=== PATIENT | female | born 1970 | race Caucasian/White ===

== ENCOUNTER 2024-03-04 09:41 | Emergency (ER) | payer OTHER, SELFPAY ==
[2024-03-04 09:58] VITALS: BP 155/96; PULSE 97; RESP 18; TEMP 36.7; O2SAT 99; BMI 30.9
--- NOTE | 2024-03-04 10:14 | EXP.UTC ---
Discharge Plan Disposition Patient Disposition: Home, Self-Care Condition: Good Prescriptions Prescriptions: New cephalexin 500 mg capsule 500 mg PO QID 7 Days Qty: 28 0RF Referrals Follow up/Referrals: Lacho Oleary APRN [Primary Care Provider] - See instructions Activity Restrictions/Add. Instructions Additional Instructions/Restrictions: Take medication as prescribed When home prop up legs to help with swelling Make appointment and keep it with your Family Doctor if symptoms persist or do no improve Return if needed Straight to ER if any life threatening symptoms Clinical Impressions Clinical Impression: Cellulitis Qualifiers: Site of cellulitis: unspecified site Qualified Code(s): L03.90 - Cellulitis, unspecified Instructions Patient Instructions: Cellulitis, DI for Peripheral Edema -- Bilateral, Cephalexin Discharge ED Provider: Jennifer Hernandez [facility] General Stated complaint: legs swollen, no accident Mode of Arrival: Ambulatory Source of Information: Patient Limitations: No Limitations Time Seen by Provider: 03/04/24 10:14 Description of Symptoms (Recalled from Triage Doc. by RN): Patient reports swollen legs and feet. States the pain is unbearable. HEENT Symptoms (Recalled from RN notes): No Resp Symptoms (Recalled from RN notes): No Skin Symptoms (Recalled from RN notes): No MS Symptoms (Recalled from RN notes): Yes Functional Status (Recalled from RN notes): wnl History of Present Illness Provider Complaint: Patient state that she has been having issues with her lower legs for well over a month States for the last couple of days she has been having redness, warmth and swelling in her lower legs States that feels like they are warm and burn at times and hurts when she is on them alot states today she was bringing a friend in to get checked so she registered too to see if she could get something for pain Related Data Previous Rx's Medication Instructions Recorded cephalexin 500 mg capsule 500 mg PO QID 7 days #28 caps 03/04/24 Allergies Allergy/AdvReac Type Severity Reaction Status Date / Time No Known Allergies Allergy Verified 03/04/24 10:14 Worker's Comp Is this a Worker's Comp case?: No [facility] Disclaimer: The information contained in this section may have been updated after the patient was seen, as this information can be updated by other users. Social History Smoking Status: Unknown if ever smoked alcohol intake: never current occupational status: unemployed Travel in the last 8 weeks: None ROS Obtained: Yes All systems reviewed & no additional complaints except as documented and Yes Systems reviewed as appropriate & no additional complaints except as documented Constitutional Constitutional: Reports system reviewed and no additional complaints, except as documented, Reports as per HPI, Denies body ache, Denies chills and Denies fever(s) ENT Ears, Nose, Mouth, and Throat: Reports system reviewed and no additional complaints, except as documented and Reports as per HPI Cardiovascular Cardiovascular: Reports system reviewed and no additional complaints, except as documented and Reports as per HPI Respiratory Respiratory: Reports system reviewed and no additional complaints, except as documented and Reports as per HPI Gastrointestinal Gastrointestingal: Reports system reviewed and no additional complaints, except as documented and as per HPI Musculoskeletal Musculoskeletal: Reports system reviewed and no additional complaints, except as documented and Reports as per HPI Integumentary/Breasts Skin/Breast: Reports system reviewed and no additional complaints, except as documented, Reports as per HPI and Reports other Comments: redness, swelling and tenderness bilateral lower extremities Physical Exam General General appearance: alert and in no apparent distress ENT ENT exam: Present mucous membranes moist Respiratory Respiratory exam: Present normal lung sounds bilaterally; Absent respiratory distress or wheezes Cardiovascular Cardiovascular exam: Present regular rate, normal rhythm and normal heart sounds Extremities Exam Extremities exam: Present other (bilateral mild redness and warmth noted, no blistering, reports tenderness with palpation and walking, mild swelling ) Neurological Exam Neurological exam: Present alert, oriented X3 and normal gait Medical Decision Making Christophe Inquiry Pt receiving controlled substance: No Christophe was queried for this patient: No Vital Signs: 03/04/24 09:58 Temperature 98.1 F Temperature Source Oral Pulse Rate [Radial] 97 H Respiratory Rate 18 Blood Pressure [Right Arm] 155/96 H Blood Pressure Mean [Right Arm] 115 Blood Pressure Source [Right Arm] Automatic Cuff Blood Pressure Position [Right Arm] Sitting 02 Sat by Pulse Oximetry 99 Oxygen Delivery Method Room Air Medical Decision Narrative: Patient states symptoms have been on and off for a month today was bringing in friend and decided to get checked too Discussed transfer to the ED for furhter work up due to patient declined will start on antibiotics and have patient follwo up with PCP and give strict return precautions
[2024-03-04 10:35] VITALS: BP 155/96; PULSE 97; RESP 18; TEMP 36.7; O2SAT 99
== END 2024-03-04 10:36 | disposition home or self-care (01) ==
PROVIDERS: Emergency Provider Nurse Practitioner; PCP Nurse Practitioner Family
DX: L03.115 Cellulitis of right lower limb (principal); L03.116 Cellulitis of left lower limb; M79.604 Pain in right leg; M79.605 Pain in left leg
CPT/HCPCS: 99204; 99212; G0463